=== PATIENT | male | born 1995 | race African-American/Black ===

== ENCOUNTER 2023-03-20 21:41 | Emergency (ER) | payer OTHER, SELFPAY ==
[2023-03-20 21:49] VITALS: BP 136/101; BMI 32.1
[2023-03-20 22:05] LABS: % Basophils 0.4 % (0-2); % Eosinophils 0.6 % (0-6); % Immature Granulocytes 0.4 % (0-0.5); % Lymphocytes 19.1 % (20.5-51.1); % Monocytes 3.8 % (1.7-9.3); % Neutrophils 75.7 % (42.2-75.2); Absolute Eosinophils 0.1 10^3/uL (0-0.7); Absolute Lymphocytes 1.6 10^3/uL (1.2-3.4); Absolute Monocytes 0.3 10^3/uL (0.1-0.6); Absolute Neutrophils 6.1 10^3/uL (1.4-6.5); Hematocrit 40.6 % (39.0-52.0); Hemoglobin 14.2 g/dL (13.0-18.0); Mean Corpuscular Hgb 26.8 pg (27.0-31.0); Mean Corpuscular Volume 76.6 fL (80.0-94.0); Mean Platelet Volume 8.6 fL (7.4-10.4); Nucleated Red Blood Cells % 0 % (-); Platelet Count 407 10^3/uL (130-400); Red Cell Dist. Width 13.2 % (11.5-14.5); White Blood Cell Count 8.1 10^3/uL (4.8-10.8)
[2023-03-20 22:20] LABS: ALT (SGPT) 55 U/L (0-50); AST (SGOT) 32 U/L (17-59); Albumin 4.7 g/dl (3.5-5.0); Alkaline Phosphatase 63 U/L (38-126); Blood Urea Nitrogen 15 mg/dl (9-20); Calcium 9.3 mg/dl (8.4-10.2); Carbon Dioxide 22 mmol/L (22-30); Chloride 107 mmol/L (98-107); Estimated Creatinine Clearance > 125 ml/min; Glucose 93 mg/dl (70-99); Lipase 70 U/L (23-300); Potassium 4.1 mmol/L (3.5-5.1); Sodium 136 mmol/L (135-145); Total Bilirubin 0.4 mg/dl (0.2-1.3); Total Protein 7.8 g/dl (6.3-8.2); eGFR > 60.00
--- NOTE | 2023-03-20 23:25 | ED.GENMED ---
History of Present Illness
General
Chief Complaint: Abdominal Pain
Time Seen by Provider: 03/20/23 22:55
Travel History
Have you had any contact with someone who has COVID-19?: No
Do you have any symptoms of coronavirus? Fever > 100 degrees, chills, cough, shortness of breath, sore throat, loss of taste or smell, muscle aches, or headache?: No
History of Present Illness
History of Present Illness:
27 yo male presents w/ RUQ pain x 3-4 weeks. Pain is post prandial, typically immediately after eating. Pain more severe today after eating tuna salad. No prior abd surgeries. No f/c/s.
Review of Systems
Review of Systems
Allergies reviewed?: Yes
All Other Systems: ROS reviewed and negative except as documented in HPI and ROS
Phy Exam
Physical Exam
Physical Exam:
GEN: Well appearing, NAD, WDWN
HEENT: Oral mucosa moist, no scleral icterus
Cardiac: Regular rate
Lung: No respiratory distress, no tachypnea
Abdomen: soft, tender to the right upper quadrant, negative Mo sign
MSK: No gross deformity or injuries
Skin: Good color, no pallor or jaundice, no rashes
Neuro: AO x3, moves all extremities freely
Psych: Calm, cooperative
Course
Orders/Labs/Results
Orders:
Orders
03/20/23 21:56
Complete Blood Count/With Diff Urgent
Comprehensive Metabolic Panel Urgent
Lipase Urgent
03/21/23 00:00
US Abdomen Complete/Upper Urgent
Reason For Exam: RUQ pain
03/21/23 00:35
Ketorolac [Toradol] 15 mg IM NOW STA
Abnormal Lab Results
03/20/23
21:56
MCV 76.6 L fL
(80.0-94.0)
MCH 26.8 L pg
(27.0-31.0)
Plt Count 407 H 10^3/uL
(130-400)
Neutrophils % 75.7 H %
(42.2-75.2)
Lymphocytes % 19.1 L %
(20.5-51.1)
ALT 55 H U/L
(0-50)
03/20/23 21:56
03/20/23 21:56
Vital Signs
Initial and Last Documented VS:
Initial Vital Signs
Temp Pulse Resp BP Pulse Ox
98.6 F 76 22 136/101 97
03/20/23 21:49 03/20/23 21:49 03/20/23 21:49 03/20/23 21:49 03/20/23 21:49
Last Documented Vital Signs
Temp Pulse Resp BP Pulse Ox
98.6 F 76 22 136/101 97
03/20/23 21:49 03/20/23 21:49 03/20/23 21:49 03/20/23 21:49 03/20/23 21:49
MDM/Problems Addressed
MDM/Problems Addressed:
Ultrasound is unremarkable. Likely gastritis or peptic ulcer disease as the patient is a nicotine user. Discussed supportive care, PPIs, H2 blockers, GI follow-up
*Critical Care Note
Total Time (30-74mins, 75-104mins- exclusive of procedures): Not Applicable
ED Attending Note
-
Portions of this chart may have been created with voice recognition software.� Occasional wrong word or��sound alike� substitutions may have occurred due to the inherent limitations of voice recognition software.
Discharge Plan
Departure
Patient Disposition: Home (Routine Discharge)
Date of Disposition: 03/21/23
Time of Disposition: 01:08
Patient with high blood pressure during this ER visit?: No
Discharge Problem:
Gastritis
Instructions: Gastritis (DC)
Prescriptions:
New
pantoprazole 40 mg tablet,delayed release (DR/EC)
40 mg PO DAILY Qty: 14 0RF
famotidine 20 mg tablet
20 mg PO BID 7 Days Qty: 14 0RF
Referrals:
Shilpa Romero MD [Active] -
Interventions
Interventions:
*Risk Screen - Suicide Last Done: 03/20/23 21:49
*General Assessment Last Done: 03/21/23 01:13
*Neglect/Abuse Screening Last Done: 03/20/23 21:49
ED- Fall Risk Assessment Last Done: 03/21/23 01:13
*ED COVID-19 Vaccine History Last Done: 03/20/23 21:49
*Nursing Disposition Last Done: 03/21/23 01:13
VQ-Wuvkio-Vvoamfasqd Assessment Last Done: 03/21/23 00:29
Discharge Date and Time
Discharge Date/Time: 03/21/23 01:14
[2023-03-21] MEDS: TORADOL 15 MG IM (00:45)
== END 2023-03-21 01:14 | disposition home or self-care (01) ==
LOC: EMR 21:41
PROVIDERS: Emergency Medicine; EMERGENCY PHYSICIAN Emergency Medicine
DX: K29.70 Gastritis, unspecified, without bleeding (principal); R10.11 Right upper quadrant pain
CPT/HCPCS: 99285; 96372; 76700; 80053; 83690; 85025